=== PATIENT | male | born 1945 | race Caucasian/White ===

== ENCOUNTER 2022-06-22 19:05 | Outpatient (CLI) | payer MEDICARE, SELFPAY ==
[2022-06-22 21:59] LABS: Chloride* 101 mmol/L (96-114)
[2022-06-22 22:00] LABS: Potassium* 4.7 mmol/L (3.6-5.1); Sodium* 134 mmol/L (135-149)
[2022-06-22 22:02] LABS: Alanine Aminotransferase* 16 U/L (4-50); Alkaline Phosphatase* 71 U/L (40-150); Aspartate Amino Transferase* 31 U/L (12-35); Bilirubin Total* 0.6 mg/dL (0.1-1.5); Blood Urea Nitrogen* 26 mg/dL (7-30); Carbon Dioxide* 28 mmol/L (20-32); Creatinine* 1.1 mg/dL (0.5-1.5); Estimated Glomerular Filt Rate 69 ml/min; Total Protein* 6.5 g/dL (6.0-8.3)
[2022-06-22 22:03] LABS: Calcium* 9.6 mg/dL (8.4-10.6); Glucose* 89 mg/dL (60-115)
== END 2022-06-22 19:06 | disposition home or self-care (01) ==
LOC: NFLDREF 19:06
PROVIDERS: Visit Provider Nurse Practitioner Family
DX: R30.0 Dysuria (principal); I10 Essential (primary) hypertension
CPT/HCPCS: 80053; 87086; 87186